=== PATIENT | female | born 1950 | race Caucasian/White ===

== ENCOUNTER → 2021-10-22 12:11 | Outpatient (CLI) | payer MEDICARE, OTHER, SELFPAY ==
--- NOTE | 2021-10-22 | DI.ECHO.S_ITS ---
[facility]---------+ [facility] +---------+ : : [address] : [address] : : : : [id number] : : : : Phone: [phone]+ Echocardiogram Report + + :Name: SANG SORTO Study Date: 10/22/2021 Height: 66 in : :[facility] ReadingLocation: Weight: 170 lb : : Gender: Female BSA: 1.9 m2 : :: 1950 Age: 71 yrs BP: 188/95 mmHg: :Reason For Study: Murmur : :Ordering Physician: NAZARIO, : :GOVIND Meek Performed By: Octaviano Guo : :Referring: GOVIND LANGE : + + Interpretation Summary The ejection fraction is estimated to be 60-65%. Grade I diastolic dysfunction. The right ventricle is normal in size and function. There is trace aortic regurgitation. There is mild tricuspid regurgitation. The right ventricular systolic pressure is estimated to be at least 32 mmHg based on an estimated right atrial pressure of 3 mm Hg. Procedure: A two-dimensional transthoracic echocardiogram with color flow and Doppler was performed. The study quality was technically adequate. There is no prior echocardiogram noted for this patient. The patient was in normal sinus rhythm during the exam. Left Ventricle: The left ventricle is normal in size and wall thickness. Left ventricular systolic function is normal. The ejection fraction is estimated to be 60-65%. There are no focal wall motion abnormalities. Grade I diastolic dysfunction. Right Ventricle: The right ventricle is normal in size and function. Atria: Both atria are normal in size. The interatrial septum grossly appears intact with no obvious evidence for an atrial septal defect. Mitral Valve: There is mild mitral annular calcification. There is trace mitral regurgitation. Aortic Valve: The aortic valve is trileaflet. There is no aortic valve stenosis. There is trace aortic regurgitation. Tricuspid Valve: The tricuspid valve is normal in structure and function. There is mild tricuspid regurgitation. The right ventricular systolic pressure is estimated to be at least 32 mmHg based on an estimated right atrial pressure of 3 mm Hg. Pulmonic Valve: The pulmonic valve is normal in structure and function. There is a trace or physiologic amount of pulmonic regurgitation. Great Vessels: The aortic root is normal size. The dimensions of the ascending aorta are normal. The IVC is of normal diameter and collapses greater than 50% with a sniff. This suggests a low right atrial pressure of 3 mm Hg. Pericardium/ Pleura There is no pericardial effusion. There is no pleural effusion. MMode/2D Measurements & Calculations LVIDd: 4.4 cm LVOT diam: 1.7 cm LVIDs: 3.0 cm Ao root diam: 2.5 cm FS: 31.8 % asc Aorta Diam: 3.2 cm IVSd: 0.70 cm LVPWd: 0.70 cm LV lara. diameter/BSA (cm/m^2): 2.4 LV sys. diameter/BSA (cm/m^2): 1.6 LA dimension: 3.3 cm RA long axis: 4.1 cm LA A2 area: 15.6 cm2 LA A4 area: 13.3 cm2 LA length (vol): 4.3 cm LA vol: 41.1 ml LA vol index: 22.0 ml/m2 TAPSE_phl: 2.2 cm Doppler Measurements & Calculations Ao V2 max: 117.0 cm/sec LVOT Max Lee: 106.0 cm/sec Ao V2 mean: 93.8 cm/sec LV V1 max P.5 mmHg Ao max P.0 mmHg LV V1 VTI: 24.4 cm Ao mean P.0 mmHg CARLOS ENRIQUE(I,D): 1.9 cm2 Ao V2 VTI: 28.9 cm CARLOS ENRIQUE(V,D): 2.1 cm2 sev ratio: 0.84 CARLOS ENRIQUE indexed to BSA (cm^2/m^2): 1.0 MV E max lee: 70.7 cm/sec TR max lee: 269.0 cm/sec MV A max lee: 118.0 cm/sec TR max P.9 mmHg MV E/A: 0.60 Med Peak E' Lee: 3.7 cm/sec E/E' med: 19.3 Lat Peak E' Lee: 7.3 cm/sec E/E' lat: 9.8 E/e' average: 14.5 MV dec time: 0.23 sec SV(LVOT): 55.4 ml AV VR_phl: 0.91 CARLOS ENRIQUE(VTI)/BSA_phl: 1.0 MV P1/2t-pr_phl: 67.0 msec Reading Physician:02:50 PM
== END ==
PROVIDERS: Referring Provider Family Medicine; Visit Provider Family Medicine
DX: I07.1 Rheumatic tricuspid insufficiency (principal); R01.1 Cardiac murmur, unspecified
CPT/HCPCS: 93306